=== PATIENT | male | born 1945 | race Caucasian/White ===

== ENCOUNTER 2018-02-24 14:05 | Emergency (ER) | payer BC, OTHER ==
[~2018-02-24 14:05] MED LIST: BUPR75TA4; PROZAC; QUET50TA; ZOLP-158
[2018-02-24 16:07] VITALS: BP 114/75
== END 2018-02-24 16:39 | disposition home or self-care (01) ==
LOC: ER 14:05
DX: J20.9 Acute bronchitis, unspecified (principal)
CPT/HCPCS: 71046

== ENCOUNTER 2018-03-13 14:24 | Inpatient (IN) | payer OTHER ==
[~2018-03-13] VITALS: Ht 177.8 cm; Wt 109.8 kg
[2018-03-13 14:57] LABS: Basophils # (auto) 0 uL; Basophils % (auto) 0.5 % (0.0-2.0); Eosinophils # (auto) 0.2 uL; Hematocrit 41.6 % (41.0-53.0); Hemoglobin 14.4 g/dL (13.5-17.5); Lymphocytes # (auto) 2.4 uL; Lymphocytes % (auto) 34.9 % (10.0-50.0); Mean Corpuscular Hgb Conc. 34.7 g/dL (32.0-36.0); Mean Corpuscular Volume 94.9 fL (80.0-100.0); Monocytes # (auto) 0.6 uL; Monocytes % (auto) 8.1 % (0.0-12.0); Neutrophils # (auto) 3.6 uL; Neutrophils % (auto) 53.5 % (37.0-80.0); Nucleated Red Blood Cells % 0.2 %; Platelet Count (auto) 171 10^3/uL (140-450); Red Blood Cells 4.38 10^6/uL (4.5-5.90); Red Cell Distribution Width 14.3 % (11.8-14.3); White Blood Cell 6.8 10^3/uL (4.4-10.8)
[2018-03-13 15:20] LABS: Alanine Aminotransferase 31 U/L (16-61); Albumin 3.6 g/dL (3.4-5.0); Alkaline Phosphatase 77 U/L (45-117); Anion Gap 9 (5-15); Aspartate Aminotransferase 15 U/L (15-37); BUN/Creatinine Ratio 24.5; Bilirubin, Total 0.4 mg/dL (0.2-1.0); Blood Urea Nitrogen 27 mg/dL (7-18); Calcium 8.5 mg/dL (8.5-10.1); Carbon Dioxide 19 mmol/L (21-32); Chloride 112 mmol/L (98-107); GFR African American 85 mL/min; GFR Non-African American 70 mL/min; Glucose 116 mg/dL (74-106); Magnesium 2.7 mg/dL (1.6-2.6); Potassium 4.4 mmol/L (3.5-5.1); Sodium 140 mmol/L (136-145); Total Protein 6.9 g/dL (6.4-8.2)
[2018-03-13] MEDS ORDERED: ASPirin 81 mg TAB PO ONE (16:30)
[2018-03-13] MEDS ORDERED: TEMAZEPAM 15 MG CAP PO PRN (17:15)
[2018-03-13] MEDS ORDERED: ACETAMINOPHEN 500 MG TAB PO PRN (17:15)
[2018-03-13] MEDS ORDERED: MORPHINE SULF INJ 2 MG/ML SYRINGE 1ML IV PRN ×2 (17:15)
[2018-03-13] MEDS ORDERED: HYDROcodone-ACET 5/325MG TAB PO PRN (17:15)
[2018-03-13] MEDS ORDERED: NITROGLYCERIN 0.4 MG SL TAB SL PRN (17:15)
[2018-03-13] MEDS ORDERED: LABETALOL HCL 5 MG/ML ML 20ML VIAL IV PRN (17:15)
[2018-03-13] MEDS ORDERED: LACTULOSE 20Gm/30ML SOLN PO PRN (17:15)
[2018-03-13] MEDS ORDERED: PROMETHAZINE HCL 25 MG/ML 1ML IV PRN (17:15)
[2018-03-13] MEDS ORDERED: LORazepam 0.5 MG TAB PO PRN (17:15)
[2018-03-13] MEDS: SODIUM CHLORIDE 0.9% 1,000 ML IV SCH (17:22)
[2018-03-13 17:36] LABS: CRP High Sensitivity 0.46 mg/dL (< 0.3)
[2018-03-13] MEDS ORDERED: ENOXAPARIN SOD 40 MG/0.4 ML SYRINGE SC SCH (18:00)
[2018-03-13] MEDS: PANTOPRAZOLE 40 MG TAB PO SCH (18:21)
[2018-03-13] MEDS ORDERED: FLUO-126 PO (18:30)
[2018-03-13] MEDS ORDERED: IOHEXOL 350 MG/ML 100ML IJ ONE (18:46)
[2018-03-13 21:23] LABS: Urine Bacteria NONE SEEN /hpf (None Seen); Urine Blood Negative /uL (Negative); Urine WBC <1 /hpf (0 - 3)
[2018-03-13 21:39] LABS: Alcohol, Urine < 3.0 mg/dL (0-5); Amphetamine Screen, Urine NEGATIVE (NEGATIVE); Barbiturate Scree,Urine NEGATIVE (NEGATIVE); Benzodiazephine Screen, Urine NEGATIVE (NEGATIVE); Cannabinoid Screen, Urine NEGATIVE (NEGATIVE); Cocaine Screen, Urine NEGATIVE (NEGATIVE); Opiate Scree,Urine NEGATIVE (NEGATIVE); Phencyclidine Screen, Urine NEGATIVE (NEGATIVE)
[2018-03-13 21:57] VITALS: BP 107/60
[2018-03-13] MEDS ORDERED: buPROPion HCL 75 MG TAB PO SCH (22:00)
[2018-03-13] MEDS ORDERED: QUEtiapine FUMARATE 25 MG TAB PO SCH (22:00)
[2018-03-13] MEDS ORDERED: ATORVASTATIN 20 MG TAB PO SCH (22:00)
[2018-03-13] MEDS ORDERED: FLUO-125 PO (22:43)
[2018-03-13] MEDS ORDERED: BUPR300T28 PO (22:43)
[2018-03-13] MEDS ORDERED: QUET200T44 PO (22:43)
[2018-03-13] MEDS ORDERED: QUEtiapine FUMARATE 100 MG TAB PO SCH (23:00)
[2018-03-13] MEDS ORDERED: buPROPion HCL 100 MG TAB PO SCH (23:00)
[2018-03-14] MEDS: SODIUM CHLORIDE 0.9% 1,000 ML IV SCH ×2 (04:18→13:04)
[2018-03-14 05:00] VITALS: BP 103/64
[2018-03-14 05:31] LABS: Basophils # (auto) 0 uL; Basophils % (auto) 0.4 % (0.0-2.0); Eosinophils # (auto) 0.2 uL; Eosinophils % (auto) 4.6 % (0.0-7.0); Hematocrit 39.3 % (41.0-53.0); Hemoglobin 13.7 g/dL (13.5-17.5); Lymphocytes # (auto) 2.5 uL; Lymphocytes % (auto) 47.7 % (10.0-50.0); Mean Corpuscular Hemoglobin 32.7 pg (28.0-32.0); Mean Corpuscular Hgb Conc. 34.8 g/dL (32.0-36.0); Mean Corpuscular Volume 93.8 fL (80.0-100.0); Monocytes # (auto) 0.5 uL; Monocytes % (auto) 9.6 % (0.0-12.0); Neutrophils % (auto) 37.7 % (37.0-80.0); Nucleated Red Blood Cells % 0.1 %; Platelet Count (auto) 156 10^3/uL (140-450); Red Blood Cells 4.19 10^6/uL (4.5-5.90); Red Cell Distribution Width 14.3 % (11.8-14.3); White Blood Cell 5.2 10^3/uL (4.4-10.8)
[2018-03-14 06:13] LABS: BUN/Creatinine Ratio 24.3; Potassium 4.4 mmol/L (3.5-5.1)
[2018-03-14 06:14] LABS: Albumin 3.4 g/dL (3.4-5.0); Bilirubin, Total 0.4 mg/dL (0.2-1.0); Total Protein 6.4 g/dL (6.4-8.2)
[2018-03-14 08:00] VITALS: BP 118/78
[2018-03-14] MEDS: PANTOPRAZOLE 40 MG TAB PO SCH (09:33)
[2018-03-14] MEDS ORDERED: FLUoxetine HCL 20 MG CAP PO SCH (10:00)
[2018-03-14] MEDS ORDERED: ASPirin 81 mg TAB PO SCH (10:00)
[2018-03-14 13:00] VITALS: BP 130/70
[2018-03-15 10:02] LABS: Folate (Folic Acid) 10.89 ng/mL (5.38-24)
== END 2018-03-14 16:36 | disposition home health service (06) | DRG 312 ==
LOC: ER 14:24 → TELE 14:25 → TELE-WESTW 17:53
PROVIDERS: ADMIT Internal Medicine; ATTEND Internal Medicine
DX: R55 Syncope and collapse (principal); R07.9 Chest pain, unspecified; E11.9 Type 2 diabetes mellitus without complications; E86.0 Dehydration; F31.9 Bipolar disorder, unspecified; F41.9 Anxiety disorder, unspecified; I08.0 Rheumatic disorders of both mitral and aortic valves; G47.00 Insomnia, unspecified; I67.2 Cerebral atherosclerosis; J20.9 Acute bronchitis, unspecified; G43.909 Migraine, unspecified, not intractable, without status migrainosus; Z82.3 Family history of stroke; Z82.49 Family history of ischemic heart disease and other diseases of the circulatory system; Z83.3 Family history of diabetes mellitus; Z81.8 Family history of other mental and behavioral disorders; Z88.0 Allergy status to penicillin; Z88.8 Allergy status to other drugs, medicaments and biological substances; Z90.49 Acquired absence of other specified parts of digestive tract; Z90.89 Acquired absence of other organs
CPT/HCPCS: 36415; 70450; 71046; 71275; 80053; 80061; 80307; 81001; 82550; 82607; 82746; 83735; 83880; 84443; 84484; 85025; 85379; 85652; 86141; 93005; 93306; 93886; 94761; 96360